=== PATIENT | male | born 1990 | race Caucasian/White ===

== ENCOUNTER 2016-04-24 21:19 | Emergency (ER) | payer OTHER ==
[~2016-04-24] VITALS: Ht 182.9 cm; Wt 70.0 kg
[~2016-04-24 21:19] MED LIST: IBUP-1542 PO
[2016-04-24 21:23] VITALS: Ht 182.9 cm; Wt 70.0 kg
--- NOTE | 2016-04-24 22:53 | ERD ---
ER Documentation Chief Complaint Date/Time DATE: 04/24/16 Chief Complaint Sore throat HPI The patient is a 25-year-old male who presents the Emergency Department with complaint of sore throat for the past 3 days. The patient reports an aching pain to the back of his throat, which he currently rates as 8/10. The pain is worsened upon swallowing solids. However, he denies any dysphagia. He reports associated fevers, chills and body aches. Otherwise, denies cough, nasal congestion, ear pain, neck pain, neck stiffness. Denies abdominal pain, vomiting, diarrhea. Denies any sick contacts. The patient reports that he has experienced similar symptoms in the past, at which time he was diagnosed with strep throat. He denies any recent dental pain, infections or procedures. Denies difficulty handling his oral secretions, change in phonation, or any difficulty opening/closing his mouth. Denies any new rashes. ROS All systems reviewed and are negative except as per history of present illness. Medications Home Meds Active Scripts Benzocaine/Menthol* (Cepacol* Sore Throat Lozenges) 1 Each Lozenge, 1 EACH MM q2h Y for SORE THROAT, #30 LOZENGE Prov:TRINA VASQUEZ PA-C 04/24/16 Ibuprofen* (Motrin*) 600 Mg Tab, 600 MG PO Q6, #30 TAB Prov:TRINA VASQUEZ PA-C 04/24/16 Amoxicillin* (Amoxicillin*) 500 Mg Cap, 500 MG PO BID for 7 Days, CAP Prov:TRINA VASQUEZ PA-C 04/24/16 Ibuprofen* (Motrin*) 600 Mg Tab, 600 MG PO Q6H Y for PAIN AND OR ELEVATED TEMP, #30 TAB Prov:ANGELIQUE WHITNEY MD 11/17/15 Allergies Allergies: Coded Allergies: No Known Drug Allergy (Verified Allergy, Mild, 11/17/15) PMhx/Soc Medical and Surgical Hx: pt denies Medical Hx, pt denies Surgical Hx History of Surgery: No Anesthesia Reaction: No Hx Neurological Disorder: No Hx Respiratory Disorders: No Hx Cardiac Disorders: No Hx Psychiatric Problems: No Hx Miscellaneous Medical Probl: No Hx Alcohol Use: No Hx Substance Use: No Hx Tobacco Use: No Smoking Status: Never smoker Physical Exam Vitals Vital Signs Date Time Temp Pulse Resp B/P Pulse Ox O2 Delivery O2 Flow Rate FiO2 1/12/17 21:23 97.8 104 20 133/86 100 Physical Exam GENERAL: Well-developed, well-nourished, male, in no acute distress HEENT: Head is normocephalic, atraumatic. No scleral pallor or icterus. Pupils equal, round and reactive to light. Extraocular movements intact. No injection. No discharge. Conjunctiva pink. Nares are patent bilaterally. Bilaterally tympanic membranes are clear with no evidence of erythema, effusion or dulling of the light reflex. Moist mucous membranes. Posterior pharynx is erythematous, with few exudates noted bilaterally. No palatal petechiae. Uvula is midline. No trismus. No stridor. No excessive drooling. No brawny induration. No submandibular swelling. Phonation is normal. NECK: Supple. No masses. Tender anterior cervical lymphadenopathy bilaterally. Trachea midline. No nuchal rigidity. No meningismus. Full range of motion. RESPIRATORY: Lungs are clear to auscultation bilaterally. Equal breath sounds. Normal expiratory effort. CARDIOVASCULAR: Regular rate and rhythm. S1 and S2 normal. No murmurs. Distal pulses are palpable, 2+ bilaterally. Capillary refill is less than 2 seconds. GASTROINTESTINAL: Abdomen is soft, non-tender, and non-distended. EXTREMITIES: No clubbing, cyanosis, or edema. Normal skin perfusion. Moving all extremities. Muscle tone is normal. NEUROLOGIC: The patient is alert, awake, and oriented x 3. No focal neurologic deficits. Speech is normal. INTEGUMENT: Skin is intact. Warm and dry. No rashes, no petechiae present. Normal turgor. PSYCHIATRIC: Cooperative; appropriate. Procedures/MDM This is a 25-year-old male presenting to the Emergency Department complaining of sore throat and fever. He is non-toxic appearing and exhibits no meningeal signs. On physical examination the patient's posterior pharynx is erythematous, with exudates noted bilaterally. He had tender anterior cervical lymphadenopathy. The differential diagnosis includes, but is not limited to, pharyngitis, laryngitis, epiglottitis, peritonsillar abscess, Balwinder's angina, mononucleosis, allergic reaction, candidiasis, stomatitis, foreign body, dental pain, pneumonia. The patient's condition remained stable during his stay. Given that the patient presented with recent fever, tonsillar exudates, tender anterior cervical lymphadenopathy and no cough, he fulfilled all four conditions of the Centor Criteria, and I believe that the patient's symptoms are most consistent with pharyngitis, likely streptococcal in etiology. Uvula is midline. There was no uvular deviation, submandibular swelling, brawny induration, elevation of the tongue, change in phonation, tripoding. I do not suspect peritonsillar abscess, retropharyngeal abscess, Ludwigs angina, epiglottitis or any other emergent medical condition. At this time, the patient is in stable condition, and therefore can be discharged home with prescriptions for Amoxicillin, Ibuprofen and Cepacol lozenges, and given strict return precautions for signs of deteriorating or worsening condition. He is advised to follow-up with his primary care provider for reevaluation and further management within the next 2-3 days, or return to the ER sooner for any new or worsening symptoms. The patient also raised concern over recurrent strep infections over the last several years, and requested information for ENT, which was provided. I shared my medical decision making and plan with the patient at length and in great detail, and he verbally understands and agrees with the plan for further observation and care as an outpatient. At the time of discharge, all questions were answered. Departure Diagnosis: Primary Impression: Acute pharyngitis Pharyngitis/tonsillitis etiology: unspecified etiology Qualified Code: J02.9 - Acute pharyngitis, unspecified etiology Condition: Stable Patient Instructions: Pharyngitis, Strep (Presumed), Self-Care for Sore Throats , When You Have a Sore Throat Referrals: DUKE STEWARD MD Additional Instructions: Call your primary care doctor TOMORROW for an appointment during the next 2-3 days.See the doctor sooner or return here if your condition worsens before your appointment time. TRINA VASQUEZ PA-C Apr 24, 2016 22:53
[2016-04-24] MEDS ORDERED: IBUP-1542 PO (22:54)
[2016-04-24] MEDS ORDERED: BENZ1LOZ52 MM (22:54)
[2016-04-24] MEDS ORDERED: AMO500 PO (22:54)
[2016-04-24 23:51] VITALS: TEMP 94.6
== END 2016-04-24 23:51 | disposition home or self-care (01) ==
LOC: FTE 21:19
DX: J02.9 Acute pharyngitis, unspecified (principal)
CPT/HCPCS: 99283

== ENCOUNTER 2016-05-17 04:14 | Emergency (ER) | payer OTHER ==
[~2016-05-17] VITALS: Ht 182.9 cm; Wt 92.5 kg
[~2016-05-17 04:14] MED LIST changes: +AMO500 PO; +BENZ1LOZ52 MM
[2016-05-17 05:06] VITALS: Ht 182.9 cm; Wt 92.5 kg
[2016-05-17] MEDS ORDERED: IBUP-1542 PO (06:27)
[2016-05-17] MEDS ORDERED: CETI10CA PO (06:27)
--- NOTE | 2016-05-17 13:18 | ERD ---
ER Documentation Chief Complaint Date/Time DATE: 05/17/16 TIME: 13:15 Chief Complaint both ear aches x 3 days, rhinorrhea HPI 25-year-old male with no significant past medical history presents the ED complaining of bilateral ear pain, rhinorrhea, nasal congestion that started 3 days ago. States that he take take amoxicillin 3 weeks ago for a strep throat infection. Describes pain as a pounding pain and rates it a 8 out of 10. Denies any fever, chills, abdominal pain, SOB, chest pain, cough, rhinorrhea, diarrhea. Denies any sick contacts. States that he is able to swallow without difficulty. Patient is tolerating oral intake and eating appropriately. ROS All systems reviewed and are negative except as per history of present illness. Medications Home Meds Active Scripts Cetirizine Hcl* (Zyrtec*) 10 Mg Capsule, 10 MG PO DAILY, #15 TAB.CHEW Prov:DONNA LARRY PA-C 05/17/16 Ibuprofen* (Motrin*) 600 Mg Tab, 600 MG PO Q6, #30 TAB Prov:DONNA LARRY PA-C 05/17/16 Benzocaine/Menthol* (Cepacol* Sore Throat Lozenges) 1 Each Lozenge, 1 EACH MM q2h Y for SORE THROAT, #30 LOZENGE Prov:TRINA VASQUEZ PA-C 04/24/16 Ibuprofen* (Motrin*) 600 Mg Tab, 600 MG PO Q6, #30 TAB Prov:TRINA VASQUEZ PA-C 04/24/16 Amoxicillin* (Amoxicillin*) 500 Mg Cap, 500 MG PO BID for 7 Days, CAP Prov:TRINA VASQUEZ PA-C 04/24/16 Ibuprofen* (Motrin*) 600 Mg Tab, 600 MG PO Q6H Y for PAIN AND OR ELEVATED TEMP, #30 TAB Prov:ANGELIQUE WHITNEY MD 11/17/15 Allergies Allergies: Coded Allergies: No Known Drug Allergy (Verified Allergy, Mild, 11/17/15) PMhx/Soc Medical and Surgical Hx: pt denies Medical Hx, pt denies Surgical Hx History of Surgery: No Anesthesia Reaction: No Hx Neurological Disorder: No Hx Respiratory Disorders: No Hx Cardiac Disorders: No Hx Psychiatric Problems: No Hx Miscellaneous Medical Probl: No Hx Alcohol Use: Yes (Former) Hx Substance Use: Yes (Former Thc) Hx Tobacco Use: No Smoking Status: Never smoker Physical Exam Vitals Vital Signs Date Time Temp Pulse Resp B/P Pulse Ox O2 Delivery O2 Flow Rate FiO2 05/17/16 05:06 98.5 67 20 127/60 99 Physical Exam Const: Ait-muk-rvksgewxq, well-nourished. In no acute distress. Head: Atraumatic, normocephalic Eyes: Normal Conjunctiva without injection. No purulent discharge. PERRL. EOMI ENT: Normal external ear. Bilateral ear canal without erythema. Bilateral tympanic membrane pearly carroll without effusion or bulging. Nasal canal clear with normal turbinates. Moist oropharynx without tonsillar exudates. Non- erythematous pharynx. Uvula midline. No drooling. No trismus. Neck: Full range of motion. No meningismus. No cervical lymphadenopathy. Resp: Clear to auscultation bilaterally. No wheezing, rhonchi, rales, or crackles. No accessory muscle use. No retractions. Cardio: Regular rate and rhythm. No murmurs, rubs or gallops. Abd: Soft, non tender, non distended. Normal bowel sounds. No palpable masses. No rebound tenderness. No guarding. Skin: No petechiae or rashes Back: No midline tenderness. No CVA tenderness. Ext: No cyanosis, or edema. Neur: Awake and alert. Psych: Normal Mood and Affect Procedures/MDM 25-year-old male with no significant past medical history presents to the ED complaining of bilateral ear pain, nasal congestion, rhinorrhea that started 3 days ago. Patient is afebrile and nontoxic-appearing. Patient has normal vital signs. Patient's physical exam is consistent with an external earache without any signs of infection. Tympanic membrane is really carroll without erythema or bulging. Patient does not have tenderness to palpation of tragus or mastoid. Low suspicion for otitis media, otitis externa or mastoiditis. Patient's physical exam include lungs which were clear to auscultation and a normal pulse oximetry. Patient is speaking in full sentences. I instructed patient that patient symptoms are likely due to viral etiology. Instructed patient that if symptoms do not improve with symptomatic relief, to follow-up with his family physician for further care and treatment or return to the ED. There is a low suspicion for pneumonia, epiglottitis, croup, viral/strep pharyngitis, sinusitis, peritonsillar abscess, retropharyngeal abscess, meningitis, sepsis, acute abdomen or other emergent conditions. Discharge medications: Zyrtec, ibuprofen Follow up with primary care physician in 1-2 days. Instructed patient to return to the ED sooner for any worsening symptoms. Patient's questions were answered. Patient understood and agreed with discharge plan. Patient discharged stable. Departure Diagnosis: Primary Impression: Acute pain of both ears Additional Impression: Rhinorrhea Condition: Stable Patient Instructions: Earache W/O Infection (Adult), Allergic Rhinitis Referrals: [facility] YOU HAVE RECEIVED A MEDICAL SCREENING EXAM AND THE RESULTS INDICATE THAT YOU DO NOT HAVE A CONDITION THAT REQUIRES URGENT TREATMENT IN THE EMERGENCY DEPARTMENT. FURTHER EVALUATION AND TREATMENT OF YOUR CONDITION CAN WAIT UNTIL YOU ARE SEEN IN YOUR DOCTORS OFFICE WITHIN THE NEXT 1-2 DAYS. IT IS YOUR RESPONSIBILITY TO MAKE AN APPOINTMENT FOR FOLOW-UP CARE. IF YOU HAVE A PRIMARY DOCTOR --you should call your primary doctor and schedule an appointment IF YOU DO NOT HAVE A PRIMARY DOCTOR YOU CAN CALL OUR PHYSICIAN REFERRAL HOTLINE AT IF YOU CAN NOT AFFORD TO SEE A PHYSICIAN YOU CAN CHOSE FROM THE FOLLOWING [facility] [address] [facility]. [facility] [address] [facility]. [facility] [address] [facility] [facility] [address] [facility] [facility] [address] [facility] [facility]. [address] [facility]. [facility] YOU HAVE RECEIVED A MEDICAL SCREENING EXAM AND THE RESULTS INDICATE THAT YOU DO NOT HAVE A CONDITION THAT REQUIRES URGENT TREATMENT IN THE EMERGENCY DEPARTMENT. FURTHER EVALUATION AND TREATMENT OF YOUR CONDITION CAN WAIT UNTIL YOU ARE SEEN IN YOUR DOCTORS OFFICE WITHIN THE NEXT 1-2 DAYS. IT IS YOUR RESPONSIBILITY TO MAKE AN APPOINTMENT FOR FOLOW-UP CARE. IF YOU HAVE A PRIMARY DOCTOR --you should call your primary doctor and schedule and appointment IF YOU DO NOT HAVE A PRIMARY DOCTOR YOU CAN CALL OUR PHYSICIAN REFERRAL HOTLINE AT . IF YOU CAN NOT AFFORD TO SEE A PHYSICIAN YOU CAN CHOSE FROM THE FOLLOWING [facility], [facility]: [facility] [address] [place] [address] [facility] [address] [place] [address] [facility] + [facility] [address] [place] [address] [facility]CIALT[facility] Additional Instructions: FOLLOW UP WITH YOUR PRIMARY CARE PHYSICIAN TOMORROW.Return to this facility if you are not improving as expected. DONNA LARRY PA-C May 17, 2016 13:18
== END 2016-05-17 07:00 | disposition home or self-care (01) ==
LOC: FTE 04:14
DX: H92.03 Otalgia, bilateral (principal); J34.89 Other specified disorders of nose and nasal sinuses
CPT/HCPCS: 99283

== ENCOUNTER 2016-10-15 02:41 | Emergency (ER) | END 2016-10-15 03:31 | disposition home or self-care (01) | DX: J02.8 Acute pharyngitis due to other specified organisms (principal); B96.89 Other specified bacterial agents as the cause of diseases classified elsewhere; Z87.891 Personal history of nicotine dependence ==

== ENCOUNTER 2017-01-31 14:22 | Emergency (ER) | payer OTHER ==
[~2017-01-31] VITALS: Ht 175.3 cm; Wt 80.0 kg
[~2017-01-31 14:22] MED LIST changes: -AMO500 PO; +AMOX500C2 PO; +CETI10CA PO
[2017-01-31 14:29] VITALS: Ht 175.3 cm; Wt 80.0 kg
[2017-01-31] MEDS ORDERED: NAPR-260 PO (16:35)
[2017-01-31] MEDS ORDERED: CYCL-319 PO (16:35)
[2017-01-31] MEDS ORDERED: AMOX500C2 PO (16:36)
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
[2017-01-31] MEDS ORDERED: IBUPROFEN 600 MG TAB PO ONE (17:00)
== END 2017-01-31 17:06 | disposition home or self-care (01) ==
LOC: FTE 14:22
DX: J02.9 Acute pharyngitis, unspecified (principal); R51 Headache
CPT/HCPCS: Z7502; Z7610; 99284